=== PATIENT | female | born 1980 | race Caucasian/White ===

== ENCOUNTER 2019-02-12 07:57 | Emergency (ER) | payer OTHER, BC ==
[2019-02-12 08:49] LABS: ADD MAN DIFF? NO
[2019-02-12 08:51] LABS: WHITE BLOOD COUNT 11.8 10^3/ul (4.8-10.8)
[2019-02-12 08:52] LABS: BASOPHIL # 0.1 10^3/ul (0.0-0.1); BASOPHILS % 0.4 % (0.0-2.0); EOSINOPHILS # 0.1 10^3/ul (0.0-0.5); EOSINOPHILS % 0.8 % (0.0-7.0); HEMATOCRIT 36.5 % (37.0-47.0); HEMOGLOBIN 12.1 g/dl (12.0-16.0); LYMPHOCYTES # 2.3 10^3/ul (0.8-2.9); LYMPHOCYTES % 19.5 % (15.0-51.0); MEAN CORPUSCULAR HEMOGLOBIN 29.3 pg (29.0-33.0); MEAN CORPUSCULAR HGB CONC 33.2 g/dl (32.0-37.0); MEAN CORPUSCULAR VOLUME 88.4 fl (82.0-101.0); MEAN PLATELET VOLUME 11.7 fl (7.4-10.4); MONOCYTE # 0.5 10^3/ul (0.3-0.9); MONOCYTES % 4.4 % (0.0-11.0); NEUTROPHIL # 8.8 10^3/ul (1.6-7.5); NEUTROPHILS % 74.5 % (39.0-77.0); PLATELET COUNT 231 10^3/UL (140-415); RED BLOOD COUNT 4.13 10^6/ul (4.20-5.40); RED CELL DISTRIBUTION WIDTH 13.4 % (11.5-14.5)
[2019-02-12 09:03] LABS: ADD UMIC YES; UR ASCORBIC ACID NEGATIVE (NEGATIVE); UR BILIRUBIN (Dip) NEGATIVE (NEGATIVE); UR BLOOD (Dip) 2+ mg/dL (NEGATIVE); UR CALCIUM OXALATE CRYSTAL FEW /HPF (NONE SEEN); UR CLARITY SLIGHTLY CLOUDY (CLEAR); UR COLOR YELLOW (YELLOW); UR GLUCOSE (Dip) NEGATIVE (NEGATIVE); UR KETONES (Dip) NEGATIVE (NEGATIVE); UR LEUKOCYTE ESTERASE (Dip) 2+ Leu/ul (NEGATIVE); UR MUCUS FEW /HPF (NONE SEEN); UR NITRITE (Dip) NEGATIVE (NEGATIVE); UR RBC 6 /HPF (0-5); UR SQUAMOUS EPITHELIAL CELL FEW /HPF (FEW); UR TOTAL PROTEIN (Dip) NEGATIVE (NEGATIVE); UR UROBILINOGEN (Dip) 1+ mg/dL (NEGATIVE); UR WBC 0 /HPF (0-5)
== END 2019-02-12 10:20 | disposition home or self-care (01) ==
LOC: FTE 07:57
DX: O23.42 Unspecified infection of urinary tract in pregnancy, second trimester (principal); Z3A.16 16 weeks gestation of pregnancy
CPT/HCPCS: 36415; 76805; 76817; 81001; 84702; 85025; 86900; 86901; 99284-25

== ENCOUNTER 2019-03-11 12:19 | Outpatient (CLI) | payer OTHER ==
[2019-03-11 13:38] LABS: ADD MAN DIFF? NO
[2019-03-11 13:40] LABS: WHITE BLOOD COUNT 12.9 10^3/ul (4.8-10.8)
[2019-03-11 13:40] LABS: BASOPHILS % 0.3 % (0.0-2.0); EOSINOPHILS # 0.1 10^3/ul (0.0-0.5); EOSINOPHILS % 0.7 % (0.0-7.0); HEMATOCRIT 36.4 % (37.0-47.0); HEMOGLOBIN 11.9 g/dl (12.0-16.0); LYMPHOCYTES # 2.6 10^3/ul (0.8-2.9); LYMPHOCYTES % 20.2 % (15.0-51.0); MEAN CORPUSCULAR HEMOGLOBIN 29.1 pg (29.0-33.0); MEAN CORPUSCULAR HGB CONC 32.7 g/dl (32.0-37.0); MEAN PLATELET VOLUME 12.7 fl (7.4-10.4); MONOCYTE # 0.7 10^3/ul (0.3-0.9); MONOCYTES % 5.4 % (0.0-11.0); NEUTROPHIL # 9.4 10^3/ul (1.6-7.5); NEUTROPHILS % 72.7 % (39.0-77.0); PLATELET COUNT 224 10^3/UL (140-415); RED BLOOD COUNT 4.09 10^6/ul (4.20-5.40); RED CELL DISTRIBUTION WIDTH 14.3 % (11.5-14.5)
== END 2019-03-11 14:19 | disposition home or self-care (01) ==
LOC: OBT 12:19 → L-D 12:19 → OBT 14:19
DX: O62.9 Abnormality of forces of labor, unspecified (principal); Z3A.20 20 weeks gestation of pregnancy
CPT/HCPCS: 76815; 76817; 85025

== ENCOUNTER 2019-03-19 14:50 | Outpatient (CLI) | payer OTHER | END 2019-03-19 17:18 | disposition home or self-care (01) | LOC: OBT 14:50 → L-D 14:52 → OBT 17:18 | DX: O26.852 Spotting complicating pregnancy, second trimester (principal); O09.522 Supervision of elderly multigravida, second trimester; Z3A.21 21 weeks gestation of pregnancy | CPT/HCPCS: 76815 ==

== ENCOUNTER 2019-06-30 09:58 | Outpatient (CLI) | payer OTHER ==
[2019-06-30] MEDS: ONDANSETRON 4 MG TAB PO (12:15)
[2019-06-30 12:22] LABS: ADD MAN DIFF? NO
[2019-06-30 12:24] LABS: BASOPHIL # 0.1 10^3/ul (0.0-0.1); BASOPHILS % 0.4 % (0.0-2.0); EOSINOPHILS # 0.1 10^3/ul (0.0-0.5); EOSINOPHILS % 0.7 % (0.0-7.0); HEMATOCRIT 36.9 % (37.0-47.0); HEMOGLOBIN 12.3 g/dl (12.0-16.0); LYMPHOCYTES # 2.3 10^3/ul (0.8-2.9); LYMPHOCYTES % 13.9 % (15.0-51.0); MEAN CORPUSCULAR HEMOGLOBIN 30.4 pg (29.0-33.0); MEAN CORPUSCULAR HGB CONC 33.3 g/dl (32.0-37.0); MEAN CORPUSCULAR VOLUME 91.1 fl (82.0-101.0); MEAN PLATELET VOLUME 12.1 fl (7.4-10.4); MONOCYTE # 0.8 10^3/ul (0.3-0.9); NEUTROPHIL # 13.2 10^3/ul (1.6-7.5); NEUTROPHILS % 78.7 % (39.0-77.0); PLATELET COUNT 206 10^3/UL (140-415); RED BLOOD COUNT 4.05 10^6/ul (4.20-5.40); RED CELL DISTRIBUTION WIDTH 15.2 % (11.5-14.5)
[2019-06-30 12:24] LABS: WHITE BLOOD COUNT 16.8 10^3/ul (4.8-10.8)
[2019-06-30 12:53] LABS: ALANINE AMINOTRANSFERASE 18 IU/L (13-69); ALBUMIN 3.5 g/dl (3.3-4.9); ALBUMIN/GLOBULIN RATIO 1.06; ALKALINE PHOSPHATASE 154 IU/L (42-121); ANION GAP 7 (5-13); ASPARTATE AMINO TRANSFERASE 21 IU/L (15-46); BILIRUBIN,INDIRECT 0.5 mg/dl (0-1.1); BILIRUBIN,TOTAL 0.5 mg/dl (0.2-1.3); BLOOD UREA NITROGEN 6 mg/dl (7-20); CALCIUM 8.3 mg/dl (8.4-10.2); CARBON DIOXIDE 22 mmol/L (21-31); CHLORIDE 108 mmol/L (97-110); CREATININE 0.44 mg/dl (0.44-1.00); Estimated GFR > 60 mL/min (>60); GLUCOSE 104 mg/dl (70-220); POTASSIUM 3.7 mmol/L (3.5-5.1); SODIUM 137 mmol/L (135-144); TOTAL PROTEIN 6.8 g/dl (6.1-8.1)
[2019-06-30 12:58] LABS: ADD UMIC YES; UR ASCORBIC ACID NEGATIVE (NEGATIVE); UR BACTERIA FEW /HPF (NONE SEEN); UR BILIRUBIN (Dip) NEGATIVE (NEGATIVE); UR BLOOD (Dip) 2+ mg/dL (NEGATIVE); UR CLARITY CLOUDY (CLEAR); UR COLOR AMBER (YELLOW); UR GLUCOSE (Dip) NEGATIVE (NEGATIVE); UR KETONES (Dip) 2+ mg/dL (NEGATIVE); UR LEUKOCYTE ESTERASE (Dip) 2+ Leu/ul (NEGATIVE); UR MUCUS MANY /HPF (NONE SEEN); UR NITRITE (Dip) NEGATIVE (NEGATIVE); UR RBC 5 /HPF (0-5); UR SPECIFIC GRAVITY (Dip) 1.027 (1.003-1.030); UR SQUAMOUS EPITHELIAL CELL MANY /HPF (FEW); UR TOTAL PROTEIN (Dip) 1+ mg/dl (NEGATIVE); UR UROBILINOGEN (Dip) NEGATIVE (NEGATIVE); UR WBC 62 /HPF (0-5)
[2019-06-30 13:15] LABS: AMPHETAMINE/METHAMPHETAMINE Negative (NEGATIVE); BARBITURATES Negative (NEGATIVE); BENZODIAZEPINES Negative (NEGATIVE); CANNABINOIDS Negative (NEGATIVE); COCAINE Negative (NEGATIVE); OPIATES Negative (NEGATIVE)
== END 2019-06-30 13:28 | disposition home or self-care (01) ==
LOC: OBT 09:58 → L-D 09:58 → OBT 13:28
DX: O99.613 Diseases of the digestive system complicating pregnancy, third trimester (principal); R19.7 Diarrhea, unspecified; R50.9 Fever, unspecified; O09.523 Supervision of elderly multigravida, third trimester; Z3A.36 36 weeks gestation of pregnancy
CPT/HCPCS: 80053; 80307; 81001; 85025; 87045

== ENCOUNTER 2019-07-02 11:42 | Inpatient (IN) | payer OTHER ==
[2019-07-02] MEDS ORDERED: LACTATED RINGER'S 1,000 ML IV (12:20)
[2019-07-02] MEDS ORDERED: METHYLERGONOVINE 0.2 MG INJ IM (12:30)
[2019-07-02] MEDS ORDERED: MISOPROSTOL 200 MCG TAB PR (12:30)
[2019-07-02] MEDS ORDERED: CARBOPROST 250 MCG INJ IM (12:30)
[2019-07-02] MEDS ORDERED: IBUPROFEN 600 MG TAB PO (12:30)
[2019-07-02] MEDS ORDERED: LIDOCAINE 1% (MPF) 30 ML INJ INJ (12:30)
[2019-07-02] MEDS ORDERED: OXYTOCIN 30 UNITS/LR 500 ML IV ×3 (12:30)
[2019-07-02] MEDS: LACTATED RINGER'S 1,000 ML IV ×2 (12:48→13:52)
[2019-07-02] MEDS: AMPICILLIN 2 GM/NS (PMX) 100 ML IV (13:52)
[2019-07-02] MEDS: BETAMET NA PHOS/AC (6 MG/ML) 2 ML INJ SYG IM (14:48)
[2019-07-02] MEDS: AMPICILLIN 1 GM/NS (PMX) 50 ML IV ×3 (17:36→22:39)
[2019-07-03] MEDS: AMPICILLIN 1 GM/NS (PMX) 50 ML IV ×4 (03:03→15:04)
[2019-07-03] MEDS: LACTATED RINGER'S 1,000 ML IV ×2 (06:34→15:23)
[2019-07-03] MEDS: BETAMET NA PHOS/AC (6 MG/ML) 2 ML INJ SYG IM (15:09)
[2019-07-04] MEDS ORDERED: PRENATAL VITAMIN PO (09:00)
== END 2019-07-03 16:30 | disposition home or self-care (01) | DRG 833 ==
LOC: L-D 11:42
DX: O47.03 False labor before 37 completed weeks of gestation, third trimester (principal); O99.820 Streptococcus B carrier state complicating pregnancy; O09.523 Supervision of elderly multigravida, third trimester; Z3A.36 36 weeks gestation of pregnancy
CPT/HCPCS: 76815; 76818; 81001; 85025; 85610; 85730; 86592; 86850; 86900; 86901; 87340